=== PATIENT | male | born 1970 ===

== ENCOUNTER 2017-03-29 11:43 | Emergency (ER) | payer MEDICAID ==
[2017-03-29] MEDS ORDERED: Sodium Chloride 0.9% 1,000 ML IV ONE ×2 (12:50→13:56)
[2017-03-29 13:19] LABS: BASO # 0.1 K/uL (0.0-0.2); BASO % 0.5 % (0.0-2.0); EOS # 0.3 K/uL (0.0-0.7); EOS % 1.8 % (0.0-4.0); HEMATOCRIT 43.6 % (35.0-51.0); LYMPH # 1.8 K/uL (1.0-4.3); LYMPH % 12.7 % (20.0-40.0); MEAN CELL VOLUME 94.2 fL (80.0-94.0); MEAN CORPUSCULAR HEMOGLOBIN 30.2 pg (27.0-31.0); MEAN PLATELET VOLUME 8.9 fL (7.2-11.7); MONO % 6.8 % (0.0-10.0); NRBC % 0.1 % (0.0-2.0); RED CELL DISTRIBUTION WIDTH 13.7 % (11.5-14.5); WHITE BLOOD COUNT 14.4 K/uL (4.8-10.8)
[2017-03-29 13:21] VITALS: RESP 18
[2017-03-29 13:26] LABS: CHLORIDE 97 mmol/L (98-107); POTASSIUM 4.1 mmol/L (3.6-5.2); SODIUM 131 mmol/L (132-148)
[2017-03-29 13:28] LABS: GFR AFRICAN-AMERICAN > 60
[2017-03-29 13:29] LABS: ALB/GLOB RATIO 1.2 (1.0-2.1); ALKALINE PHOSPHATASE 128 U/L (38-126); ALT/SGPT 30 U/L (21-72); AST/SGOT 24 U/L (17-59); BILIRUBIN,TOTAL 1.7 mg/dL (0.2-1.3); BLOOD UREA NITROGEN 17 mg/dL (9-20); CALCIUM 8.9 mg/dl (8.6-10.4); CARBON DIOXIDE 22 mmol/L (22-30)
[2017-03-29 13:34] LABS: URINE BILIRUBIN NEGATIVE (NEGATIVE); URINE BLOOD NEGATIVE (NEGATIVE); URINE COLOR Straw (YELLOW); URINE GLUCOSE (UA) 3+ mg/dL (Normal); URINE KETONE 1+ mg/dL (NEGATIVE); URINE LEUKOCYTE ESTERASE NEG Leu/uL (Negative); URINE PROTEIN NEGATIVE (NEGATIVE); URINE UROBILINOGEN NORMAL mg/dL (0.2-1.0)
[2017-03-29 13:48] LABS: GLUCOSE,RANDOM 554 mg/dL (75-110)
[2017-03-29] MEDS ORDERED: (Novolin R) Insulin Human Regular 100 units/ml vial SC STA (13:55)
[2017-03-29] MEDS ORDERED: Sodium Chloride 0.9% 2,000 ML ONE (14:16)
[2017-03-29] MEDS ORDERED: (Novolin R) Insulin Human Regular 100 units/ml vial ONE (14:17)
--- NOTE | 2017-03-29 14:39 | C.PDOC ---
History Of Present Illness 46-year-old male, PMHx incldues Diabetes, presents to the emergency department with hyperglycemia, that is associated with dizziness. Patient denies fevers, abdominal pain, vomiting, or any other associated symptoms. States he is not on any medication. Time Seen by Provider: 03/29/17 12:26 Chief Complaint (Nursing): High Blood Sugar History Per: Patient History/Exam Limitations: no limitations Onset/Duration Of Symptoms: Days Current Symptoms Are (Timing): Still Present Severity: Moderate Past Medical History Reviewed: Historical Data, Nursing Documentation, Vital Signs Vital Signs: Last Vital Signs Temp 97.7 F 03/29/17 15:53 Pulse 61 03/29/17 15:53 Resp 18 03/29/17 15:53 BP 109/74 03/29/17 15:53 Pulse Ox 96 03/29/17 15:59 Family History: States: No Known Family Hx - Social History Hx Alcohol Use: No Hx Substance Use: No Review Of Systems Except As Marked, All Systems Reviewed And Found Negative. Constitutional: Positive for: Other (hyperglycemia). Negative for: Fever, Chills Cardiovascular: Negative for: Chest Pain, Palpitations Respiratory: Negative for: Shortness of Breath Gastrointestinal: Negative for: Nausea, Vomiting Musculoskeletal: Negative for: Back Pain Neurological: Positive for: Dizziness. Negative for: Weakness, Numbness, Headache Physical Exam - Physical Exam Appears: Non-toxic, No Acute Distress Skin: Warm, Dry, No Rash Head: Atraumatic, Normacephalic Eye(s): bilateral: Normal Inspection, PERRL, EOMI Nose: Normal Oral Mucosa: Moist Tongue: Normal Appearing Lips: Normal Appearing Throat: No Erythema, No Exudate Neck: Normal ROM, Supple Chest: Symmetrical, No Tenderness Cardiovascular: Rhythm Regular, No Friction Rub, No Murmur Respiratory: Normal Breath Sounds, No Accessory Muscle Use, No Rales, No Rhonchi , No Wheezing Gastrointestinal/Abdominal: Soft, No Tenderness, No Guarding, No Rebound Back: No Vertebral Tenderness, No Paraspinal Tenderness Extremity: Normal ROM, No Tenderness, No Swelling Neurological/Psych: Oriented x3, Normal Speech, Normal Cranial Nerves, Normal Motor Gait: Steady ED Course And Treatment - Laboratory Results Result Diagrams: 03/29/17 13:04 03/29/17 12:50 ECG: Interpreted By Me ECG Rhythm: Sinus Rhythm ECG Interpretation: Normal Rate From EC O2 Sat by Pulse Oximetry: 96 (on RA) Pulse Ox Interpretation: Normal Medical Decision Making Medical Decision Making: Plan: * CMP, Ketone * CBC * Insulin, IVFs x2 * Urinalysis * Reassess and Disposition LAbs reviewed, the patient is hyperglycemia but not in DKA. Patient states he stop taking his medication as he has no insurance, Rx written and patient was given a temp RX card. On re-exam, the patient reports improvement of symptoms. Lungs are CTA, heart is RRR, abdomen is soft, non-tender and patient is tolerating [place]. Ambulatory in the ED with steady gait. Follow up with the medical doctor within 1-2 days. Return if worsened. Disposition - Disposition Referrals: [facility] at [facility] [Outside] Disposition: HOME/ ROUTINE Disposition Time: 15:53 Condition: GOOD Additional Instructions: Follow up with the medical doctor within 1-2 days. Return if worsened. 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 - Scribe Statement The provider has reviewed the documentation as recorded by the Scribe (Michelle Grady) All medical record entries made by the Scribe were at my direction and personally dictated by me. I have reviewed the chart and agree that the record accurately reflects my personal performance of the history, physical exam, medical decision making, and the department course for this patient. I have also personally directed, reviewed, and agree with the discharge instructions and disposition.
[2017-03-29 15:54] VITALS: BP 109/74; PULSE 61; TEMP 97.7
[2017-03-29 15:59] VITALS: O2SAT 96
== END 2017-03-29 16:10 | disposition home or self-care (01) ==
LOC: C.ER 11:43
DX: E11.65 Type 2 diabetes mellitus with hyperglycemia (principal)
CPT/HCPCS: 80053; 81001; 82009; 82948; 85025; 96360; 96361; 99284; J7040

== ENCOUNTER 2018-02-25 17:15 | Emergency (ER) | payer MEDICAID ==
[2018-02-25 17:21] VITALS: RESP 18; O2SAT 98
--- NOTE | 2018-02-25 18:47 | C.PDOC ---
History Of Present Illness 47 year old male with PMHx of DM and arthritis presents to the ED c/o right hip pain, right knee pain and right calf pain for the last 2 weeks. Patient reports he usually gets similar pain with cold weather. Patient has not taken his DM medication for 1 month because he thought he did not have insurance. Patient states that he takes Motrin 800 3 times at day at home but it does not help with his pain. Patient denies fever, chills, nausea, vomit, diarrhea, injury, trauma, fall, weakness, numbness. Time Seen by Provider: 02/25/18 18:31 Chief Complaint (Nursing): Pain, Chronic History Per: Patient History/Exam Limitations: no limitations Onset/Duration Of Symptoms: Days Current Symptoms Are (Timing): Still Present Recent travel outside of the [place]: No Additional History Per: Patient Past Medical History Reviewed: Historical Data, Nursing Documentation, Vital Signs Vital Signs: Last Vital Signs Temp 97.9 F 02/25/18 20:22 Pulse 65 02/25/18 20:22 Resp 18 02/25/18 20:22 BP 94/58 L 02/25/18 20:22 Pulse Ox 98 02/25/18 20:25 - Medical History PMH: Arthritis, Diabetes Denies: HTN Surgical History: No Surg Hx Family History: States: Unknown Family Hx - Social History Hx Alcohol Use: No Hx Substance Use: No - Immunization History Hx Tetanus Toxoid Vaccination: No Hx Influenza Vaccination: No Hx Pneumococcal Vaccination: No Review Of Systems Constitutional: Negative for: Fever, Chills Cardiovascular: Negative for: Chest Pain Respiratory: Negative for: Shortness of Breath Gastrointestinal: Negative for: Nausea, Vomiting, Abdominal Pain Musculoskeletal: Positive for: Back Pain, Leg Pain Skin: Negative for: Rash Neurological: Negative for: Weakness, Numbness Physical Exam - Physical Exam Appears: Non-toxic, No Acute Distress Skin: Normal Color, Warm, Dry Head: Atraumatic, Normacephalic Eye(s): bilateral: Normal Inspection Back: No CVA Tenderness, No Vertebral Tenderness Extremity: Normal ROM, Tenderness (right hip, right medial aspect of knee ), Calf Tenderness (right), Capillary Refill (< 2 seconds), No Swelling Pulses: Left Dorsalis Pedis: Normal, Right Dorsalis Pedis: Normal Neurological/Psych: Oriented x3, Normal Speech, Normal Motor, Normal Sensation Gait: Steady ED Course And Treatment O2 Sat by Pulse Oximetry: 98 (ON RA) Pulse Ox Interpretation: Normal Medical Decision Making Medical Decision Making: Plan: * Tylenol 975 mg PO * Right Hip X-Ray 2013 pt resting comfortably. no acute fx noted on xray. requesting food. upon reviewing xrays.done today, multiple radiological reports noted for vesna hemphill at [facility] on 02/07/18 with mr number [id number]. pt reports he was admitted for abdominal pain then, and left ama. pt has neg doppler lower exytremities done at that time bilateral. will d/c home with metformin and ibuprofen and med clinic f/u Disposition Counseled Patient/Family Regarding: Studies Performed, Diagnosis, Need For Followup, Rx Given - Disposition Referrals: [facility] at [facility] [Outside] Disposition: HOME/ ROUTINE Disposition Time: 20:38 Condition: GOOD Additional Instructions: Realice un seguimiento en la clnica mdica o con iverson mdico lo antes posible. [place] metformina segn lo prescrito. Tylenol o motrin para el dolor. Please follow up in medical clinic or with your doctor as soon as possible. Take metformin as prescribed. Tylenol or motrin for pain. 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 - Scribe Statement The provider has reviewed the documentation as recorded by the Scribe Jesus Driscoll All medical record entries made by the Scribe were at my direction and personally dictated by me. I have reviewed the chart and agree that the record accurately reflects my personal performance of the history, physical exam, medical decision making, and the department course for this patient. I have also personally directed, reviewed, and agree with the discharge instructions and disposition.
[2018-02-25] MEDS ORDERED: (Novolin R) Insulin Human Regular 100 units/ml vial SC ONE (19:19)
[2018-02-25] MEDS ORDERED: (Novolin R) Insulin Human Regular 100 units/ml vial ONE (19:28)
[2018-02-25 20:23] VITALS: BP 94/58; PULSE 65; TEMP 97.9
--- NOTE | 2018-02-26 08:01 | RAD ---
PROCEDURE: Right Hip Radiographs. HISTORY: right hip pain, hx arthritis COMPARISON: None. FINDINGS: BONES: No fracture identified. JOINTS: No dislocation seen. Bony articulations appear maintained. SOFT TISSUES: Unremarkable OTHER FINDINGS: None. IMPRESSION: No fracture or dislocation identified.
== END 2018-02-25 20:51 | disposition home or self-care (01) ==
LOC: C.ER 17:15
DX: M25.551 Pain in right hip (principal); E11.65 Type 2 diabetes mellitus with hyperglycemia